=== PATIENT | female | born 1965 | race African-American/Black ===

== ENCOUNTER 2016-05-22 13:42 | Emergency (ER) | payer SELFPAY ==
[~2016-05-22] VITALS: Ht 162.6 cm; Wt 90.7 kg
[2016-05-22 14:54] LABS: BASOPHILS % (AUTO) 0.9 % (0.0-2.0); EOSINOPHILS % (AUTO) 1.2 % (0.0-3.0); LYMPHOCYTES % (AUTO) 25.3 % (20.0-45.0); MEAN CORPUSCULAR HEMOGLOBIN 19.5 PG (27.0-31.0); MEAN CORPUSCULAR HGB CONC 29.6 G/DL (32.0-36.0); MEAN CORPUSCULAR VOLUME 66 FL (80-99); MEAN PLATELET VOLUME 7.4 FL (6.5-10.1); NEUTROPHILS % (AUTO) 64.7 % (45.0-75.0); PLATELET COUNT 478 K/UL (150-450); RED BLOOD COUNT 4.42 M/UL (4.20-5.40); RED CELL DISTRIBUTION WIDTH 17.8 % (11.6-14.8)
[2016-05-22 14:56] LABS: APPEARANCE,URINE CLEAR; KETONES,URINE NEGATIVE (NEGATIVE); LEUKOCYTE ESTERASE ,URINE 1+ (NEGATIVE); NITRITE,URINE NEGATIVE (NEGATIVE); PH,URINE 5 (4.5-8.0); PROTEIN,URINE NEGATIVE (NEGATIVE); UROBILINOGEN,URINE NORMAL MG/DL (0.0-1.0)
[2016-05-22 15:02] LABS: ALANINE AMINOTRANSFERASE 12 U/L (3-33); ALBUMIN/GLOBULIN RATIO 1.2 (1.0-2.7); ANION GAP 13 (5-15); ASPARTATE AMINO TRANSFERASE 10 U/L (5-40); CARBON DIOXIDE 25 mEQ/L (20-30); CHLORIDE 101 mEQ/L (98-107); CREATININE 1.1 mg/dL (0.5-0.9); GLOMERULAR FILTRATION RATE > 60 mL/min (>60); HEMOLYSIS 0; POTASSIUM 4.3 mEQ/L (3.4-4.9); SODIUM 139 mEQ/L (135-145); TOTAL PROTEIN 7.3 g/dL (6.6-8.7)
[2016-05-22 15:08] LABS: BACTERIA,URINE FEW /HPF; SQUAMOUS EPITHELIAL CELL,UR FEW /LPF (NONE/OCC)
[2016-05-22] MEDS ORDERED: IBUPROFEN600 MG ORAL (16:07)
[2016-05-22] MEDS ORDERED: VITAFOL-OB+DHA1 EACH PO (16:07)
[2016-05-22 16:22] VITALS: BP 127/66
[2016-05-22 16:23] VITALS: BP 127/66
--- NOTE | 2016-05-22 16:55 | Emergency Room Report ---
History of Present Illness General Chief Complaint: Vaginal Source: Patient Present Illness HPI The patient is a 50-year-old female who states that she is perimenopausal presenting for continuous vaginal bleeding for 6 weeks. The patient states that she's had irregular periods over the past year, sometimes lasting for 4 weeks. The patient states that she goes through 4 pads daily. The patient denies any symptoms including fever, chills, weakness, fatigue, headache, dizziness, blurred vision, abdominal pain, flank pain, dysuria, vaginal discharge Allergies: Coded Allergies: No Known Allergies (Unverified , 05/22/16) Patient History Past Medical History: see triage record Pertinent Family History: none Now: No Reviewed Nursing Documentation: PMH: Agreed, PSxH: Agreed Nursing Documentation-PMH Past Medical History: No Stated History Review of Systems All Other Systems: negative except mentioned in HPI Physical Exam Vital Signs Date Time Temp Pulse Resp B/P Pulse Ox O2 Delivery O2 Flow Rate FiO2 05/22/16 13:58 98.1 75 20 125/71 100 Room Air Sp02 EP Interpretation: reviewed, normal General Appearance: no apparent distress, alert, GCS 15, non-toxic Head: normocephalic, atraumatic Eyes: bilateral eye PERRL, bilateral eye normal inspection ENT: hearing grossly normal, normal pharynx, no angioedema, normal voice Gastrointestinal: normal bowel sounds, non tender, soft, no mass, non-distended , no guarding, no rebound Genitourinary: normal inspection, no CVA tenderness Musculoskeletal: back normal, gait/station normal, normal range of motion, non- tender Neurologic: alert, oriented x3, responsive, motor strength/tone normal, sensory intact, speech normal Psychiatric: judgement/insight normal, memory normal, mood/affect normal, no suicidal/homicidal ideation Skin: normal color, no rash, warm/dry, well hydrated Lymphatic: no adenopathy Medical Decision Making PA Attestation Dr. Young is my supervising physician. Patient management was discussed with my supervising physician Diagnostic Impression: Primary Impression: Anemia Additional Impression: Uterine fibroid ER Course The patient is a 50-year-old female who states that she is perimenopausal presenting for continuous vaginal bleeding for 6 weeks. Differential diagnosis considered: Perimenopausal, DUB, endometriosis, uterine fibroids PE: Vitals WNL. NAD. Abdomen: Normal appearance. Non distended. No ecchymosis. Normal BS. Non TTP. No McBurney point tenderness. No guarding. No CVA tenderness Labs: CBC shows microcytic anemia. No leukocytosis CMP: Unremarkable Urinalysis shows 5+ occult blood. No signs of infection. Negative Pelvic ultrasound shows uterine fibroids. Otherwise unremarkable The patient will be discharged home with a prescription for Motrin and vitamins. The patient is advised she needs to followup with [facility] in PMD. Hormone therapy may be an option. ER precautions are given Laboratory Tests Test 05/22/16 14:27 White Blood Count 5.0 K/UL (4.8-10.8) Red Blood Count 4.42 M/UL (4.20-5.40) Hemoglobin 8.6 G/DL (12.0-16.0) L Hematocrit 29.0 % (37.0-47.0) L Mean Corpuscular Volume 66 FL (80-99) L Mean Corpuscular Hemoglobin 19.5 PG (27.0-31.0) L Mean Corpuscular Hemoglobin Concent 29.6 G/DL (32.0-36.0) L Red Cell Distribution Width 17.8 % (11.6-14.8) H Platelet Count 478 K/UL (150-450) H Mean Platelet Volume 7.4 FL (6.5-10.1) Neutrophils (%) (Auto) 64.7 % (45.0-75.0) Lymphocytes (%) (Auto) 25.3 % (20.0-45.0) Monocytes (%) (Auto) 8.0 % (1.0-10.0) Eosinophils (%) (Auto) 1.2 % (0.0-3.0) Basophils (%) (Auto) 0.9 % (0.0-2.0) Urine Color Pale yellow Urine Appearance Clear Urine pH 5 (4.5-8.0) Urine Specific [place] 1.010 (1.005-1.035) Urine Protein Negative (NEGATIVE) Urine Glucose (UA) Negative (NEGATIVE) Urine Ketones Negative (NEGATIVE) Urine Occult Blood 5+ (NEGATIVE) H Urine Nitrite Negative (NEGATIVE) Urine Bilirubin Negative (NEGATIVE) Urine Urobilinogen Normal MG/DL (0.0-1.0) Urine Leukocyte Esterase 1+ (NEGATIVE) H Urine RBC 5-10 /HPF (0 - 2) H Urine WBC 2-4 /HPF (0 - 2) Urine Squamous Epithelial Cells Few /LPF (NONE/OCC) Urine Bacteria Few /HPF (NONE) Urine HCG, Qualitative Negative Sodium Level 139 mEQ/L (135-145) Potassium Level 4.3 mEQ/L (3.4-4.9) Chloride Level 101 mEQ/L (98-107) Carbon Dioxide Level 25 mEQ/L (20-30) Anion Gap 13 (5-15) Blood Urea Nitrogen 10 mg/dL (7-23) Creatinine 1.1 mg/dL (0.5-0.9) H Estimate Glomerular Filtration Rate > 60 mL/min (>60) Glucose Level 108 mg/dL (74-106) H Calcium Level 9.0 mg/dL (8.6-10.2) Total Bilirubin < 0.2 mg/dL (0.0-1.2) Aspartate Amino Transferase (AST) 10 U/L (5-40) Alanine Aminotransferase (ALT) 12 U/L (3-33) Alkaline Phosphatase 87 U/L (35-104) Total Protein 7.3 g/dL (6.6-8.7) Albumin 4.1 g/dL (3.5-5.2) Globulin 3.2 g/dL Albumin/Globulin Ratio 1.2 (1.0-2.7) Lab Results Impression CBC shows microcytic anemia. No leukocytosis CMP: Unremarkable Urinalysis shows 5+ occult blood. No signs of infection. Negative CT/MRI/US Diagnostic Results CT/MRI/US Diagnostic Results : Imaging Test Ordered: Pelvic US Impression uterine fibroids Last Vital Signs Date Time Temp Pulse Resp B/P Pulse Ox O2 Delivery O2 Flow Rate FiO2 05/22/16 16:23 98.1 69 20 127/66 100 Room Air Status: improved Disposition: HOME, SELF-CARE Condition: Improved Scripts Prenat Vit Comb.10/Iron/Fa/Dha (VITAFOL-OB+DHA COMBO PACK) 1 Each Combo..pkg 1 EACH PO DAILY for 30 Days, PACK Prov: TERZIAN,RENETTA P.A. 05/22/16 Ibuprofen* (MOTRIN*) 600 Mg Tablet 600 MG ORAL Q8H Y for For Pain, #30 TAB 0 Refills Prov: TERZIAN,RENETTA P.A. 05/22/16 Patient Instructions: Anemia, Nonspecific, Uterine Fibroids Additional Instructions: I discussed my findings with the patient. All questions and concerns have been answered. Treatment and medication compliance have been addressed. I advised the patient that they need to follow up with PMD in 3-5 days. Return to ED if symptoms worsen, new symptoms arise, or if needed for any reason. Patient verbalized understanding of discharge instructions. The patient is advised she needs to see [facility] as soon as possible RENETTA LOVE May 22, 2016 16:55
--- NOTE | 2016-05-22 17:02 | Diagnostic Imaging Report ---
Indication: Heavy vaginal bleeding with clots x2 months Technique: Transabdominal and transvaginal images Comparison: None Findings: Uterus measures 18.8 cm length by 9.2 cm AP. It demonstrates multiple fibroids. Largest of these measures 8.3 cm long axis dimension. Endometrium measures 5 mm thick. Some fluid is seen within the endometrium. There is a cervical nabothian cyst. Left ovary measures 4.8 cm in length, transabdominal images. The right ovary could not be demonstrated. Only visible on transabdominal images. It demonstrates a 3.7 cm cyst. Impression: Enlarged fibroid uterus Fluid within the endometrial canal, probably old blood Suspect 3.7 cm left ovarian cyst. Probably a benign functional cyst, short-term followup sonography is recommended to evaluate for stability or regression
== END 2016-05-22 16:24 | disposition home or self-care (01) ==
LOC: EMR 14:37
DX: D64.9 Anemia, unspecified (principal); D25.9 Leiomyoma of uterus, unspecified
CPT/HCPCS: 36415; 76830; 76856; 80053; 81003; 81025; 85025; 99284